=== PATIENT | female | born 1985 ===

== ENCOUNTER 2019-04-27 10:10 | Inpatient (IN) | payer OTHER ==
[2019-04-27 10:54] VITALS: BMI 31.8
[2019-04-27] MEDS ORDERED: Lactated Ringer's 1,000 ML IV ONE (10:55)
[2019-04-27] MEDS ORDERED: cefOXitin IV 2 gm in Dextrose 2 GM/50 ML BAG IVPB ONE ×2 (10:59→11:14)
[2019-04-27] MEDS ORDERED: Sodium Citrate/Citric Acid 15 ml Sol PO ONE (11:00)
[2019-04-27] MEDS ORDERED: Sodium Citrate/Citric Acid 15 ml Sol ONE (11:13)
[2019-04-27 11:25] LABS: BASO # 0.1 K/uL (0.0-0.2); BASO % 0.7 % (0.0-2.0); EOS # 0.1 K/uL (0.0-0.7); EOS % 0.8 % (0.0-4.0); HEMOGLOBIN 10.7 g/dL (11.0-16.0); LYMPH # 1.9 K/uL (1.0-4.3); LYMPH % 22.2 % (20.0-40.0); MEAN CELL VOLUME 65.2 fL (81.0-99.0); MEAN CORPUSCULAR HEMOGLOBIN 21.2 pg (27.0-31.0); MEAN CORPUSCULAR HGB CONC 32.6 g/dL (33.0-37.0); MEAN PLATELET VOLUME 8.7 fL (7.2-11.7); MONO # 0.4 K/uL (0.0-0.8); MONO % 4.5 % (0.0-10.0); NEUT % 71.8 % (50.0-75.0); RBC 5.05 Mil/uL (3.80-5.20); RED CELL DISTRIBUTION WIDTH 21.5 % (11.5-14.5); WHITE BLOOD COUNT 8.4 K/uL (4.8-10.8)
[2019-04-27 11:35] LABS: ALBUMIN 3.7 g/dL (3.5-5.0); ALT/SGPT 16 U/L (9-52); AST/SGOT 25 U/L (14-36); BLOOD UREA NITROGEN 10 mg/dL (7-17); CALCIUM 8.9 mg/dl (8.6-10.4); GFR NON-AFRICAN AMERICAN > 60
[2019-04-27 11:45] LABS: SQUAMOUS EPITHIAL 27 /hpf (0-5); URINE BACTERIA OCC (<OCC); URINE BILIRUBIN NEGATIVE (NEGATIVE); URINE BLOOD NEGATIVE (NEGATIVE); URINE CLARITY Hazy (Clear); URINE COLOR Yellow (YELLOW); URINE GLUCOSE (UA) NORMAL (Normal); URINE LEUKOCYTE ESTERASE 3+ Leu/uL (Negative); URINE PROTEIN NEGATIVE (NEGATIVE); URINE UROBILINOGEN NORMAL mg/dL (0.2-1.0)
[2019-04-27] MEDS ORDERED: Oxytocin 10 Units/ml Inj ONE ×2 (11:50→15:36)
[2019-04-27] MEDS ORDERED: Lidocaine 2% MPF (5 ml) Inj ONE (13:12)
[2019-04-27] MEDS ORDERED: Oxytocin 20 units in LR 2,000 ML IV ONE (13:34)
[2019-04-27] MEDS ORDERED: Morphine 1 mg/ml preservative-free Inj(Duramorph) ONE (15:10)
--- NOTE | 2019-04-27 15:18 | OBADHP ---
Datetime: 04/27/2019 11:00 Admit Comment, IP Provider: 34 year old female presents to ED for repeat/scheduled . Patient reports minimal contractions currently and states she is having minimal to no vaginal disch arge. pt densi lof, vb, +FM care with Dr. 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 Pt doing well, minor contractions and mimimal v aginal discharge 1) admit to L_D 2) NPO 3) IV hydration 4) monitoring 5) Initiate protocol Justin Godfrey D.O, PGY1 agree with above @ 40 wks for schelued repeta cxs npo, ivf or/anesthsi awrae anbitisc abodmin prep Presentation-Admit: Vertex Membranes, Provider: Intact Contraction Comments Provider: irregualar Gestation - Est Wks by US: 40.0 IP Hx Assessment: The History has been Reviewed and is Current Vital Signs Provider: Reviewed; Within Normal Limits IP Chief Complaint: Scheduled Section FHR Category Provider Fetus A: Category I NICHD Decel Fetus A IP Provider: None Dilatation, Provider: 0 Effacement, Provider: 0 Station, Provider: -3 EGA AdmitDate IP: 40.0 IP Adm Impression: Term, intrauterine IP Admit Plan: Admit to unit; Initiate Section protocol
[2019-04-27] MEDS ORDERED: Oxycodone/Acetaminophen 5/325 mg Tab PO PRN (16:03)
--- NOTE | 2019-04-27 16:06 | OBDS ---
DELIVERY PERSONNEL Delivery Doctor: Kalyani Waldron MD Teletype Mechanic: SESAR Stephens Anesthesiologist: Dr Odonnell MATERNAL INFORMATION Delivery Anesthesia: Spinal Medications in Delivery: pitocin Placenta Cultured: No Maternal Complications: None Provider Comments: live male infnat cehapic prsnetatin agpar s9,9 ebgl 800ml normal appearing utuers, rtube nad ovarei sb/l LABOR SUMMARY EDC: 04/27/2019 00:00 No. Babies in Womb: 0 Attempted: No Labor Anesthesia: None LABOR INFORMATION Other Ripening Agents: n/a Oxytocin: N/A Group B Beta Strep: Positive (Annotations: 04/02/2019) Steroids Given: None Reason Steroids Not Administered: Not Applicable MEMBRANES Membranes Rupture Method: Artificial Rupture of Membranes: 04/27/2019 15:34 Length of Rupture (hrs): 0.02 Amniotic Fluid Color: Clear Amniotic Fluid Amount: Moderate STAGES OF LABOR Stage 3 hrs: 0 Stage 3 min: 2 CSECTION DELIVERY Primary Indication: Repeat Elective CSection Urgency: N/A CSection Incidence: Repeat Labor: No Labor Elective: Elective CSection Incision: Lower Uterine Transverse Sterilization Procedure: [place] BABY A INFORMATION Delivery Date/Time: 04/27/2019 15:35 Method of Delivery: Born in Route : No : N/A Forceps: N/A Vacuum Extraction: N/A Shoulder Dystocia : No SHOULDER DYSTOCIA BABY A Delivery Date/Time: 04/27/2019 15:35 PRESENTATION/POSITION BABY A Presentation: Cephalic Cephalic Presentation: Vertex Breech Presentation: N/A PLACENTA INFORMATION BABY A Placenta Delivery Time : 04/27/2019 15:37 Placenta Method of Delivery: Manual Removal Placenta Status: Delivered SCORES BABY A Heart Rate 1 min: >100 bpm Resp Effort 1 min: Good Cry Reflex Irritability 1 min: Cough or Sneeze or Pulls Away Muscle Tone 1 min: Active Motion Color 1 min: Body [place], Extremities Blue Resuscitation Effort 1 min: Tactile Stimulation SCORE 1 MIN: 9 Heart Rate 5 min: >100 bpm Resp Effort 5 min: Good Cry Reflex Irritability 5 min: Cough or Sneeze or Pulls Away Muscle Tone 5 min: Active Motion Color 5 min: Body [place], Extremities Blue Resuscitation Effort 5 min: Tactile Stimulation SCORE 5 MIN: 9 INFORMATION BABY A Gestational Age at Delivery: 40.0 Gestational Status: Post-term Outcome : Liveborn Condition : Stable Infant Sex: Male IDENTIFICATION/MEDS BABY A ID Band Number: [id number] ID Band Location: Left Leg; Left Arm Sensor Applied: Yes Sensor Number: [id number] Sensor Location : Cord Clamp Vitamin K Given : Not Given Erythromycin Given: Not Given WEIGHT/LENGTH BABY A Infant Birthweight (gms): 3410 Weight (lb): 7 Infant Weight (oz): 8 Infant Length Inches: 19.50 Infant Length cms: 49.5 CORD INFORMATION BABY A No. Cord Vessels: 3 Nuchal Cord : N/A Cord Blood Taken: Yes Infant Suction: Mouth; Nose ASSESSMENT BABY A Complications: None Physical Findings at Delivery: Within Normal Limits Infant Respirations: Appears Normal Enrollment Consultant/ALS Called : No Infant Care By: DR Hernandez Transferred To: Remains with Mother
--- NOTE | 2019-04-27 16:51 | OBHP ---
Datetime: 04/27/2019 11:00 IP Adm Impression: Term, intrauterine IP Admit Plan: Admit to unit; Initiate Section protocol Admit Comment, IP Provider: 34 year old female presents to ED for repeat/scheduled . Patient reports minimal contractions currently and states she is having minimal to no vaginal disch arge. pt densi lof, vb, +FM care with Dr. 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 Pt doing well, minor contractions and mimimal v aginal discharge 1) admit to L_D per Dr. Waldorn's instructions 2) NPO 3) IV hydration 4) monitoring/NST Reactive 5) Pre-op labs ordered as well as Pre-Op Antibiotic 5) Initiate protocol Justin Godfrey D.O, PGY1 Pt seen and examined with Dr. Godfrey and agreed with his findings, assessment and POC Pelvic Type - PN: Adequate Extremities - PN: Normal Abdomen - PN: Normal Back - PN: Normal Breast - PN: Not Done Lungs - PN: Normal Heart - PN: Normal Thyroid - PN: Normal Neurologic - PN: Normal HEENT - PN: Normal General - PN: Normal Presentation-Admit: Vertex Membranes, Provider: Intact Contraction Comments Provider: irregualar Gestation - Est Wks by US: 40.0 IP Hx Assessment: The History has been Reviewed and is Current EGA AdmitDate IP: 40.0 Vital Signs Provider: Reviewed; Within Normal Limits IP Chief Complaint: Scheduled Section FHR Category Provider Fetus A: Category I NICHD Decel Fetus A IP Provider: None Dilatation, Provider: 0 Effacement, Provider: 0 Station, Provider: -3 Genitourinary Exam: Normal DTRs - PN: Normal
[2019-04-27] MEDS ORDERED: Lactated Ringer's 1,000 ML IV SCH (23:45)
[2019-04-27] MEDS: Simethicone 80 mg Chewtab PO SCH (23:50)
--- NOTE | 2019-04-28 03:37 | OP ---
PROCEDURE DATE: 04/27/2019 PREOPERATIVE DIAGNOSES: Previous section, elective repeat. POSTOPERATIVE DIAGNOSES: Previous section, elective repeat and term intrauterine . PROCEDURE PERFORMED: Repeat low transverse section. SURGEON: Kalyani Waldron MD POWDER SHOVELER: Juan Giron MD ANESTHESIA: Spinal. ANESTHESIOLOGIST: Dr. Odonnell. OPERATIVE FINDINGS: Live male , cephalic presentation, Apgars 9 and 9. Weight is 7 pounds plus. Normal appearing uterus, tubes, and ovaries. Dr. Juan Giron, the surgical clinical reviewer, was present for the entire case, essentially in gaining entry, retraction, exposure, holding the bladder blade, helping the delivery of the baby, closing of all layers, and was present for the entire case. ESTIMATED BLOOD LOSS: 800 mL. PATHOLOGY: Placenta. COMPLICATIONS: None. DESCRIPTION OF PROCEDURE: The patient was transferred to the operating room, where she was given spinal anesthesia. Once it was found to be adequate, the patient was placed on the operating table in the dorsal supine position with the legs supported using stirrups. The patient was then prepped and draped in the usual sterile fashion. A time-out confirmed correct patient and correct procedure. Bimanual exam was performed with the above-mentioned findings. A Pfannenstiel skin incision was made with a scalpel and carried down to the underlying fascia with the Bovie. The fascia was incised in the midline and extended laterally with the Bovie. The inferior aspect of the fascial incision was grasped with Allis and Jory clamps and the underlying rectus muscles were dissected off bluntly. Attention was then turned to the superior aspect of the fascial incision, which in a similar fashion was grasped with Allis and Jory clamps and the underlying rectus muscles were dissected off bluntly. The rectus muscles were then bluntly in the midline. The peritoneum was identified and entered in clear space. The incision was extended laterally and superiorly until there was good visualization of the bladder. The lower end of the Clay was then reinserted. The vesicouterine peritoneum was incised in a transverse fashion with Metzenbaum scissors. The bladder flap was created digitally. The lower uterine segment was incised in a transverse fashion using a scalpel and the uterine incision was extended laterally with the bandage scissors. The amniotic membranes were then ruptured. The surgeon's hand entered uterine cavity. 's head was delivered atraumatically followed by delivery of shoulders, followed by delivered of body. Both oral and nasal passages of the baby were bulb suctioned. The umbilical cord was clamped and cut. Baby was handed off to the awaiting certified medication technician. Cord blood and cord gases were collected and sent x2. The placenta was then delivered manually. The uterus was exteriorized and cleared of all clots and debris. The uterine incision was repaired with 0 Vicryl in a running continuous locked fashion. A second layer of the same suture was used to close the uterus in running imbricating manner with good hemostasis at the uterine incision site. There are normal tubes and ovaries bilaterally. The uterus was then returned to the abdomen. Pericolic gutters were cleared of all clots and debris. There was good hemostasis at the uterine incision site. The peritoneum was reapproximated and closed with 2-0 chromic in running continuous fashion. The rectus was reapproximated and closed with 2-0 chromic in an interrupted manner. The fascia was reapproximated and closed with 0 Vicryl in a running continuous fashion. The subcutaneous space was closed with a 2-0 plain in an interrupted manner and the skin was reapproximated with 4-0 Monocryl in a running subcuticular fashion. At the end of the procedure, all needle, sponge, and instrument counts were noted to be correct x2. The patient tolerated the procedure well and was transferred to the recovery room in stable condition. Kalyani Waldron MD
[2019-04-28] MEDS: Oxycodone/Acetaminophen 5/325 mg Tab PO PRN ×2 (05:31→12:22)
[2019-04-28 08:23] LABS: MEAN CORPUSCULAR HEMOGLOBIN 20.9 pg (27.0-31.0); MEAN CORPUSCULAR HGB CONC 31.7 g/dL (33.0-37.0); MEAN PLATELET VOLUME 8.7 fL (7.2-11.7); RBC 4.33 Mil/uL (3.80-5.20); RED CELL DISTRIBUTION WIDTH 21.6 % (11.5-14.5)
[2019-04-28 08:25] LABS: WHITE BLOOD COUNT 13.2 K/uL (4.8-10.8)
[2019-04-28 08:26] LABS: MEAN CELL VOLUME 65.8 fL (81.0-99.0)
[2019-04-28] MEDS: Simethicone 80 mg Chewtab PO SCH ×4 (10:34→21:36)
[2019-04-28] MEDS: Prenatal Multivit/Folic Acid/Iron Tab PO SCH (10:34)
[2019-04-29] MEDS: Prenatal Multivit/Folic Acid/Iron Tab PO SCH (09:05)
[2019-04-29] MEDS: Simethicone 80 mg Chewtab PO SCH ×4 (09:05→21:30)
--- NOTE | 2019-04-29 09:34 | OBPPN ---
Datetime: 04/29/2019 09:33 PP Pain Prov: Within normal limits PP Nausea Prov: Denies PP Flatus Prov: Yes PP Breasts Prov: Normal PP Heart Prov: Normal PP Lungs Prov: Normal PP Abdomen/Uterus Prov: Normal PP Lochia Prov: Normal PP Vulva/Perineum Prov: Normal PP CVA Tenderness Prov: Normal PP Extremities Prov: Normal PP C/S Incision Prov: Normal PP Progress Prov: Normal PP Impression Prov: Normal progression PP Plan Prov: Continue present management PP Progress Note Prov: delayed entry pt seen adn exameind 04/28 doign well vss pe see above a/ps /p rltcs pod #1 dc [place] regualr diet pain magnent abdomian bidner encourage breast feedign /abmaution Vital Signs Provider PP: Reviewed; Within Normal Limits
--- NOTE | 2019-04-29 09:36 | OBPPN ---
Datetime: 04/29/2019 09:34 PP Pain Prov: Within normal limits PP Nausea Prov: Denies PP Flatus Prov: Yes PP BM Prov: No PP Breasts Prov: Normal PP Heart Prov: Normal PP Lungs Prov: Normal PP Abdomen/Uterus Prov: Normal PP Lochia Prov: Normal PP Vulva/Perineum Prov: Normal PP CVA Tenderness Prov: Normal PP Extremities Prov: Normal PP C/S Incision Prov: Normal PP Progress Prov: Normal PP Comments Phys Exam Prov: inciscion c/d/i no uterien tenderess PP Impression Prov: Normal progression PP Plan Prov: Continue present management PP Progress Note Prov: delayed entry pt seen adn exameind doign well, pain over icncison contolel wiht meds pt ambaitnb, ovidng, passign flatu, rotlerat diet, no fever, chills anseuv otjing pt is breat feed ing vss pe see above a/ps /p rltcxs pod 2 regualr diet pain magnent abdomian bidner encourage breast feedign /abmaution anticd dc in am Vital Signs Provider PP: Reviewed; Within Normal Limits
[2019-04-29] MEDS: Bacitracin 500 Units/gm Oint Foilpak UD TOP SCH ×2 (11:12→17:56)
[2019-04-29 20:22] VITALS: O2SAT 99
[2019-04-30] MEDS: Oxycodone/Acetaminophen 5/325 mg Tab PO PRN (06:47)
--- NOTE | 2019-04-30 09:16 | OBPPN ---
Datetime: 04/30/2019 09:14 PP Pain Prov: Within normal limits PP Nausea Prov: Denies PP Flatus Prov: Yes PP BM Prov: No PP Breasts Prov: Normal PP Heart Prov: Normal PP Lungs Prov: Normal PP Abdomen/Uterus Prov: Normal PP Lochia Prov: Normal PP Vulva/Perineum Prov: Normal PP CVA Tenderness Prov: Normal PP Extremities Prov: Normal PP C/S Incision Prov: Normal PP Progress Prov: Normal PP Impression Prov: Normal progression PP Plan Prov: Continue present management PP Progress Note Prov: pt seen and examined with no complaints. pt reprots pain controlled. pt is am bulating, voidng, passing flatus, bresat feeding, pt denie any fever, chills, nause, vomiting, cp, so b, lightheadness, dizzyness VSS PE GEN NAD AA ox 3 BREAST: NT, Non engorged b/l CVS: RRR, +S1/S2 ABD: soft, NT/ND, +BS, no guarding no broeudn tendners,s no rgidity FUNDUS: Firm, below level of umbilius INCISCION C/D?I healign well VE: minimal lochia, non fusl smelling EXT: negative homans sign, no calf tendnerness a/p s/p RLTCS POD #3 doing well, stable for discharge discharge home rto 1 week precautions given IP PP Procedures: None Vital Signs Provider PP: Reviewed; Within Normal Limits
--- NOTE | 2019-04-30 09:19 | OBDCSUM ---
Datetime: 04/30/2019 09:15 Discharged to, Provider: Home Follow up at, Provider: Dr Waldron Disch Instr Activity: Normal activity Disch Instr Diet: Regular Discharge Instructions, Provider: Routine instructions given Discharge Diagnosis, Provider: Term Delivered Discharge Time: 04/30/2019 09:15 Follow up in weeks, Provider: 1 week Disch Referrals: None Contraception discussed, Prov: Yes Disch Activity Restrictions: No sexual activity; Nothing in vagina - [place], tampons, douche Discharge Comment, Provider: precautions given Contraception after Delivery: Not Planning to Use
[2019-04-30] MEDS: Prenatal Multivit/Folic Acid/Iron Tab PO SCH (11:09)
[2019-04-30] MEDS: Bacitracin 500 Units/gm Oint Foilpak UD TOP SCH ×2 (11:09→18:05)
[2019-04-30] MEDS: Simethicone 80 mg Chewtab PO SCH ×2 (11:10→17:29)
[2019-04-30 23:21] VITALS: BP 108/67; PULSE 78; RESP 20; TEMP 98.7
== END 2019-04-30 19:19 | disposition home or self-care (01) | DRG 788 ==
LOC: C.EROB 10:10 → C.4D 10:55 → C.4M 19:40
PROVIDERS: ADMIT Obstetrics & Gynecology; ATTEND Obstetrics & Gynecology
PROC: 10D00Z1 Extraction of Products of Conception, Low, Open Approach (ICD-10-PCS; principal; 2019-04-27)
DX: O34.211 Maternal care for low transverse scar from previous cesarean delivery (principal); O99.824 Streptococcus B carrier state complicating childbirth; Z3A.40 40 weeks gestation of pregnancy; Z37.0 Single live birth